=== PATIENT | male | born 1975 | race Caucasian/White ===

== ENCOUNTER 2018-05-02 22:40 | Emergency (ER) | payer BC ==
[~2018-05-02] VITALS: Ht 190.5 cm; Wt 158.3 kg
[2018-05-03] MEDS ORDERED: NAPROSYN500 MG PO (02:18)
[2018-05-03 02:47] VITALS: BP 151/88
== END 2018-05-03 02:50 | disposition home or self-care (01) ==
LOC: EME 22:40
PROC: 0HQ0XZZ Repair Scalp Skin, External Approach (ICD-10-PCS; principal; 2018-05-02)
DX: S09.90XA Unspecified injury of head, initial encounter (principal); S01.01XA Laceration without foreign body of scalp, initial encounter; S00.83XA Contusion of other part of head, initial encounter; S60.511A Abrasion of right hand, initial encounter; Y00.XXXA Assault by blunt object, initial encounter
CPT/HCPCS: 70450; 70486; 99281; 99284